=== PATIENT | male | born 1985 | race African-American/Black ===

== ENCOUNTER 2019-07-23 08:09 | Emergency (ER) | payer SELFPAY ==
[2019-07-23] MEDS ORDERED: NORMAL SALINE 1000 ML 1,000 ML IV ONE ×2 (08:28→12:14)
[2019-07-23] MEDS ORDERED: ONDANSETRON HCL INJ/PF 4 MG/2 ML SDV IV ONE (08:28)
[2019-07-23] MEDS ORDERED: MORPHINE SULFATE 10 MG/ML INJ IV ONE ×2 (08:28→09:09)
--- NOTE | 2019-07-23 08:39 | ER Document Report ---
ED General - General Chief Complaint: Abdominal Pain Stated Complaint: ABDOMINAL PAIN Time Seen by Provider: 07/23/19 08:18 Primary Care Provider: RE ONEAL MD [ACTIVE STAFF] - Follow up in 3-5 days NBA MELTON MD [ACTIVE STAFF] - Follow up in 3-5 days SANJAY RUCKER MD [ACTIVE STAFF] - Follow up in 3-5 days Mode of Arrival: Wheelchair Information source: Patient - HPI Similar symptoms previously: No Notes: 42-year-old male with a history of type 1 diabetes presents to the emergency room by private car for complaint of having 5 out of 5 abdominal pain, vomiting for one day while he was driving from [place] to [place]. Reports that pain started approximately 18 hours prior. Patient denies any previous diagnoses such as gastric ulcers, pancreatitis. Patient states that he did take 3 Percocets that was not prescribed to him yesterday from a friend due to having his pain. Patient denies a history of any substance abuse. unable to get a full history and initial exam due to patient's level of pain. Denies any trauma which causes abdominal pain. Patient does not have a primary care provider. Denies fevers, chills, chest pain,palpitations, shortness of breath, dyspnea, diarrhea, hematuria,blurred vision, double vision, loss of vision, speech changes, LH, dizziness, syncope, headaches, wheezing, ST, URI, neck pain, weakness, bowel or bladder dysfunction, saddle anesthesia, numbness or tingling in bilateral upper or lower extremities equally, muscle paralysis, weakness in bilateral upper or lower extremities equally or rash. Denies IV drug use. - Related Data Allergies/Adverse Reactions: No Known Allergies Allergy (Unverified 07/23/19 08:36) Past Medical History - General Information source: Patient - Social History Smoking Status: Unknown if Ever Smoked Family History: Reviewed & Not Pertinent Review of Systems - Review of Systems Constitutional: Diaphoresis EENT: No symptoms reported Cardiovascular: No symptoms reported Respiratory: No symptoms reported Gastrointestinal: See HPI, Abdominal pain, Nausea, Vomiting Genitourinary: No symptoms reported Male Genitourinary: No symptoms reported Musculoskeletal: No symptoms reported Skin: No symptoms reported Hematologic/Lymphatic: No symptoms reported Neurological/Psychological: No symptoms reported Physical Exam - Vital signs Vitals: Temp Pulse Resp BP Pulse Ox 98.0 F 111 H 24 H 200/112 H 100 07/23/19 08:13 07/23/19 08:13 07/23/19 08:13 07/23/19 08:13 07/23/19 08:13 - Notes Notes: PHYSICAL EXAMINATION: GENERAL: ill-appearing, well-nourished and in moderate distress HEAD: Atraumatic, normocephalic. EYES: Pupils equal round and reactive to light, extraocular movements intact, sc chloe anicteric, conjunctiva are normal. ENT: Nares patent, oropharynx clear without exudates. Moist mucous membranes. NECK: Normal range of motion, supple without lymphadenopathy LUNGS: Breath sounds clear to auscultation bilaterally and equal. No wheezes rales or rhonchi. HEART: Regular rate and rhythm without murmurs ABDOMEN: Gastric tenderness on palpation, nondistended abdomen. No guarding, no rebound. No masses appreciated. No CVA tenderness bilaterally. Musculoskeletal: Normal range of motion, no pitting or edema. No cyanosis. NEUROLOGICAL: Cranial nerves grossly intact. Normal speech, normal gait. Normal sensory, motor exams PSYCH: Normal mood, normal affect. SKIN: Warm, Dry, normal turgor, no rashes or lesions noted. Course - Re-evaluation Re-evalutation: 07/23/19 14:06 On initial evaluation of patient at bedside, patient appears to be in patient is in severe pain related to having muscle pain and epigastric pain, immediately requested Dr. Fadi Wallace, supervising MD in ER, to come to bedside and he was present immediately to evaluate patient for severe abdominal pain, diaphoresis, vomiting and tachycardia. Patient is awake alert and orientated in 10 out of [address] Wallace during patient's presentation, felt that it would be appropriate to do a CTA pelvis, abdomen, chest considering patient is an extraordinary amount of pain, pointing to his epigastric area for the cause of his pain. Patient denies any history of pancreatitis, bowel obstruction, gastric ulcers. Patient denied any opioid use on initial presentation. Reports that all of his findings came back negative. When asked the patient had taken any medications that were not prescribed to him, patient states that he did take 3 oxycodone's that was not prescribed to him to for his due to his pain. At 1000, 1200, [address] Duffy consulted reviewed all lab work, CTsCBC negative for leukocytosis, CMP negative for hepatic or renal dysfunction, no electrolyte disturbances. EKG negative for acute STEMI. Due to course of his ER stay, 3 cardiac enzymes negative. CTA of chest, abdomen and pelvis all negative. Differential did include perforated diverticulitis, incarcerated hernia, pancreatitis, acute appendicitis, bowel obstruction, acute cholecystitis, gastroparesis, perforated ulcer, peritonitis which were all negative laboratory, diagnostic and clinical findings. Multiple abdominal examinations performed every 2 hours in which patient was resting, vital signs are stable, afebrile, in no distress. Over the course of 3 hours, IV medication of 50 mcg of fentanyl, 1 mg of Dilaudid, 8 mg of morphine patient's pain did reduce dramatically down to a 2 out of 10, pulse was 80bpm, patient was relaxing in bed, states his pain had resolved. Patient was able to articulate his history stated that he has had multiple issues with having acute abdominal pain, has been hospitalized multiple times in [place], has been evaluated by [facility], patient states he has had multiple endoscopies, mail officer, ekg's, seen by his primary care as well as even a psychiatrist due to there being no medical etiology for his epigastric pain and has exacerbations of his "chronic pain". family was not at bedside initially, the brother did come at roughly 6 PM, this is where he did tell the nurse that he has been taking a month's supply of pain medication, which he had recently run out of. This provider did discuss with the patient if he is withdrawing from pain medication, the patient states that he did take oxycodones that were not prescribed to him. Patient states he did have a substance abuse history in the past, denies any current substance abuse with IV drugs. Urine drug screen did show positive for opiates however this was completed after patient was given IV medication due to acute pain tachycardia and diaphoresis, which did resolve with pain medication. patient states that he just wants to return to [place], where all of his medical providers are, brother was at bedside and states he would be driving him back to [place]. This provider did not feel comfortable with discharging the patient with a heart rate 138, but no documented emergency room or provider files from [place]. When patient's pain is under control he is heart rate is under control, is not in any pain and is asymptomatic with a normal hr. It seems once the pain medication wears off, patient starts to withdraw. Patient's blood pressure was elevated 160/115, patient states he does have hypertension, and has not been taking his medications. 10 mg of hydralazine given IV. On reevaluation roughly an hour later, patient's blood pressure reduced to 140/85, heart rate in the 90s. patient given #6 325mg-5mg norco to manage his pain until he goes to [place] which the brother states he is going right after they leave heart rate did reduce down to 100 bpm, abdominal exam prior to discharge was negative, patient adamantly states he is not having any chest pain shortness of breath nausea vomiting or diarrhea, denies any severe headache, abdominal pain, lower back pain, bowel or bladder dysfunction, saddle anesthesia, fever, chills, weakness, dizziness lightheadedness, neck pain, sore throat, dyspnea. Patient selectively remembers when he can remember his history. Discussed with patient if his heart rate does reduce he would be eligible for discharge considering there is no admittable diagnosis due to the fact that all of his work-up was negative, he likely is suffering from opioid addiction, patient refused to have a issue with having opioids, refused any rehab and refused any assistance in recovering from his opioid addiction. Patient stated that he would like to leave with his brother and they would drive overnight back to [place] where all of his doctors are. Brother does not appear to be under the influence, is awake and alert and orientated. Patient is awake alert and orientated, is not under the influence of medications, GCS is 15. Abd ominal exams which have been done every 2 hours all unremarkable, patient's heart rate only increased when his pain increased, no etiology for his abdominal pain. Patient's brother confirmed that patient has had multiple work-ups in [place] by gastroenterology, cardiology, primary care as well as a psychiatrist where they cannot find the etiology for his pain exacerbations. Brother did confirm that this exacerbations exactly the same exacerbations that he had in [place]. Patient's brother did also confirm that he has had multiple endoscopies which all came back negative. Patient states the reason for seeing the psychiatrist was for the concern of hysteria related to this acute pain exacerbation as an etiology. There is no supportive documentation present. Patient adamantly wants to leave, discussed with him that his blood pressure and vitals remained stable then he will be able to leave. Patient will be sent home with a prescription for omeprazole 20 mg daily, hydrochlorothiazide 25 mg daily, and Zofran as needed for nausea vomiting. This provider suspects there may be an opioid dependence that is creating this acute exacerbation of pain as a symptom of withdrawal from opioids. pt understands that he can return at any time for further care and is more than welcome to do so and patient is also declined any rehab for opioid dependence. Patient given 6 tablets of [place] [address] 25 so patient does not go into opioid withdraw so he can drive back to [place] where he says he states he would like to seek treatment for rehab there and not in [place]. Patient was not under the influence at time of discharge. pt verbalizes this understanding. After performing a Medical Screening Examination, I estimate there is LOW risk for ACUTE APPENDICITIS, BOWEL OBSTRUCTION, ACUTE CHOLECYSTITIS, PERFORATED DIVERTICULITIS, INCARCERATED HERNIA, PANCREATITIS, TESTICULAR TORSION or PERFORATED ULCER, thus I consider the discharge disposition reasonable. Also, there is no evidence or peritonitis, sepsis, or toxicity. I have reevaluated this patient multiple times and no significant life threatening changes are noted. The patient and I have discussed the diagnosis and risks, and we agree with discharging home with close follow-up with the understanding that symptoms and presentations can change. We also discussed returning to the Emergency Department immediately if new or worsening symptoms occur. We have discussed the symptoms which are most concerning (e.g., bloody stool, fever, changing or worsening pain, intractable vomiting - standard verbal up date) that necessitate immediate return. - Vital Signs Vital signs: Temp Pulse Resp BP Pulse Ox 98.7 F 110 H 18 162/95 H 100 07/23/19 20:35 07/23/19 20:46 07/23/19 20:30 07/23/19 20:30 07/23/19 20:30 - Laboratory Result Diagrams: 07/23/19 08:29 07/23/19 08:29 Laboratory results interpreted by me: 07/23/19 07/23/19 07/23/19 08:29 08:29 08:33 RBC 4.26 L Hgb 10.9 L Hct 33.2 L MCV 78 L MCH 25.5 L RDW 14.2 H Carbon Dioxide 32 H Glucose 128 H POC Glucose 117 H Lactic Acid Alkaline Phosphatase 338 H Creatine Kinase 619 H Total Protein 8.5 H Urine Protein Urine Ketones Urine Blood Urine Urobilinogen 07/23/19 07/23/19 11:43 12:27 RBC Hgb Hct MCV MCH RDW Carbon Dioxide Glucose POC Glucose Lactic Acid 0.5 L Alkaline Phosphatase Creatine Kinase Total Protein Urine Protein 100 H Urine Ketones TRACE H Urine Blood SMALL H Urine Urobilinogen 2.0 H Discharge - Discharge Clinical Impression: Abdominal pain Qualifiers: Abdominal location: epigastric Qualified Code(s): R10.13 - Epigastric pain Hypertension Qualifiers: Hypertension type: essential hypertension Qualified Code(s): I10 - Essential (primary) hypertension Condition: Stable Disposition: HOME, SELF-CARE Instructions: Abdominal Pain ([facility]), Antinausea Medication ([facility]), Evaluation of Upper Abdominal Pain ([facility]), High Blood Pressure ([facility]), High Blood Pressure, Requiring Treatment ([facility]), Low-Fat Diet ([facility]), Pain Medication Injection ([facility]) Additional Instructions: Had an extensive work-up today with a CT angiogram of your chest abdomen pelvis that came back negative. You have received IV pain medication. You had 3 serial cardiac enzymes that all came back negative, your heart rate has reduced to 90 bpm. Your EKG was normal. We will start you on blood pressure medication today due to blood pressure being elevated. Please follow-up with your primary care provider for follow-up regarding your blood pressure . He is follow-up with [facility] regarding your epigastric abdominal pain. Will start you on Protonix 20 mg once a day. Take Zofran as needed for any nausea. Will start you on hydrochlorothiazide blood pressure medication, please take daily and follow low-salt diet Prescriptions: Hydrochlorothiazide [Hydrodiuril 25 mg Tablet] 25 mg PO QAM #30 tablet Omeprazole 20 mg PO DAILY #30 capsule. Ondansetron [Zofran Odt 4 mg Tablet] 1 - 2 tab PO Q4H PRN #15 tab.rapdis PRN Reason: For Nausea/Vomiting Referrals: NBA MELTON MD [ACTIVE STAFF] - Follow up in 3-5 days RE ONEAL MD [ACTIVE STAFF] - Follow up in 3-5 days SANJAY RUCKER MD [ACTIVE STAFF] - Follow up in 3-5 days
[2019-07-23 08:45] LABS: ABSOLUTE BASOPHILS # (AUTO) 0.1 10^3/uL (0.0-0.2); ABSOLUTE EOSINOPHILS # (AUTO) 0.3 10^3/uL (0.0-0.6); ABSOLUTE LYMPHOCYTES (AUTO) 2.4 10^3/uL (0.5-4.7); ABSOLUTE MONOCYTES (AUTO) 0.8 10^3/uL (0.1-1.4); ABSOLUTE NEUT (AUTO) 6.2 10^3/uL (1.7-8.2); BASOPHILS % (AUTO) 1.2 % (0-2); EOSINOPHILS % (AUTO) 2.9 % (0-6); HEMATOCRIT 33.2 % (37.9-51.0); HEMOGLOBIN 10.9 g/dL (13.5-17.0); LYMPHOCYTES % (AUTO) 24.5 % (13-45); MEAN CORPUSCULAR HEMOGLOBIN 25.5 pg (27.0-33.4); MEAN CORPUSCULAR HGB CONC 32.7 g/dL (32.0-36.0); MEAN CORPUSCULAR VOLUME 78 fl (80-97); MONOCYTES % (AUTO) 7.8 % (3-13); PLATELET COUNT 318 10^3/uL (150-450); RED BLOOD COUNT 4.26 10^6/uL (4.35-5.55); RED CELL DISTRIBUTION WIDTH 14.2 % (11.5-14.0); SEGMENTED NEUTROPHILS % (AUTO) 63.6 % (42-78); TOTAL CELLS COUNTED % (AUTO) 100 %; WHITE BLOOD COUNT 9.7 10^3/uL (4.0-10.5)
[2019-07-23] MEDS ORDERED: FENTANYL CITRATE INJ/PF 100 MCG/2 ML AMPUL IV ONE ×3 (08:54→19:24)
[2019-07-23] MEDS ORDERED: HYDROMORPHONE HCL INJ/PF 2 MG/ML AMPULE IV ONE (08:54)
[2019-07-23 08:58] LABS: INTERNATIONAL RATION (INR) 1.06; PROTHROMBIN TIME 13.8 SEC (11.4-15.4)
[2019-07-23 08:59] LABS: PARTIAL THROMBOPLASTIN TIME 31.1 SEC (23.5-35.8)
[2019-07-23 09:11] LABS: ALBUMIN 4.6 g/dL (3.5-5.0); ALKALINE PHOSPHATASE 338 U/L (38-126); ANION GAP 9 (5-19); ASPARTATE AMINO TRANSFERASE 35 U/L (17-59); BILIRUBIN,DIRECT 0.1 mg/dL (0.0-0.4); BILIRUBIN,TOTAL 0.8 mg/dL (0.2-1.3); BLOOD UREA NITROGEN 15 mg/dL (7-20); CALCIUM 10.1 mg/dL (8.4-10.2); CARBON DIOXIDE 32 mmol/L (22-30); CHLORIDE 102 mmol/L (98-107); CREATINE KINASE 619 U/L (55-170); GLUCOSE 128 mg/dL (75-110); POTASSIUM 4.2 mmol/L (3.6-5.0); TOTAL PROTEIN 8.5 g/dL (6.3-8.2)
[2019-07-23 09:20] LABS: CREATINE KINASE MB 3.01 ng/mL (<4.55)
[2019-07-23 09:22] LABS: TROPONIN I < 0.012 ng/mL
--- NOTE | 2019-07-23 09:47 | RADIOLOGY REPORT (SQ) ---
EXAM DESCRIPTION: CHEST SINGLE VIEW COMPLETED DATE/TIME: 07/23/2019 9:18 am REASON FOR STUDY: epigastric pain COMPARISON: None. EXAM PARAMETERS: NUMBER OF VIEWS: One view. TECHNIQUE: Single frontal radiographic view of the chest acquired. RADIATION DOSE: NA LIMITATIONS: None. FINDINGS: LUNGS AND PLEURA: No opacities, masses or pneumothorax. No pleural effusion. MEDIASTINUM AND HILAR STRUCTURES: No masses. Contour normal. HEART AND VASCULAR STRUCTURES: Heart normal in size. Normal vasculature. BONES: No acute findings. HARDWARE: None in the chest. OTHER: No other significant finding. IMPRESSION: NO ACUTE RADIOGRAPHIC FINDING IN THE CHEST. TECHNICAL DOCUMENTATION: JOB ID: [id number] [employer]- All Rights Reserved Reading location - IP/workstation name: [email or web address]
[2019-07-23 10:03] LABS: C-REACTIVE PROTEIN < 5.0 mg/L (<10.0)
--- NOTE | 2019-07-23 10:57 | RADIOLOGY REPORT (SQ) ---
EXAM DESCRIPTION: CTA ABDOMEN/PELVIS W WO; CTA CHEST COMPLETED DATE/TIME: 07/23/2019 10:08 am REASON FOR STUDY: tachy, abd pain, severe pain COMPARISON: AP chest 07/23/2019 CT abdomen same date CONTRAST TYPE AND DOSE: contrast/concentration: Isovue 350.00 mg/ml; Total Contrast Delivered: 75.0 ml; Total Saline Delivered: 70.0 ml RENAL FUNCTION: Creatinine 1.2 TECHNIQUE: CT angio of the chest performed using helical scanning technique with dynamic intravenous contrast injection. Images reviewed with lung, soft tissue and bone windows. Reconstructed coronal and sagittal MPR images reviewed. All images stored on PACS. Additional 3 dimensional post-processi ng performed to develop Maximal Intensity Projection images (MIP) CT angio of the abdomen and pelvis performed with intravenous and without oral contrastusing helical scanning technique with dynamic intravenous contrast injection. Images reviewed with lung, soft tiss ue and bone windows. Reconstructed coronal and sagittal MPR images reviewed. Delayed images for kenzie luation of the urinary system also acquired and evaluated. All images stored on PACS. Additional 3 d imensional post-processing performed to develop Maximal Intensity Projection images (MIP) All CT scanners at this facility use dose modulation, iterative reconstruction, and/or weight based d osing when appropriate to reduce radiation dose to as low as reasonably achievable (ALARA). [facility]: Dose Right [facility]: CareDose [facility]: Dose Right [facility]: Teradose 4D [facility]: [employer] RADIATION DOSE: CT Rad equipment meets quality standard of care and radiation dose reduction techniq ues were employed. CTDIvol: 8.8 - 11.7 mGy. DLP: 1237 mGy-cm. . LIMITATIONS: None. FINDINGS: CHEST: LUNGS AND PLEURA: No opacities, nodules, masses. No pneumothorax. No effusions. HILAR AND MEDIASTINAL STRUCTURES: No identified masses or abnormal nodes. Retrocardiac hiatal hernia . HEART AND VASCULAR STRUCTURES: No aneurysm or dissection. No central pulmonary emboli. No pericardi al effusion. HARDWARE: None. THYROID AND OTHER SOFT TISSUES: No masses. No adenopathy. BONES: No significant finding. OTHER: No other significant finding. ABDOMEN AND PELVIS: LIVER: Normal size. No masses. No dilated ducts. SPLEEN: Normal size. No focal lesions. PANCREAS: No masses. No significant calcifications. No adjacent inflammation or peripancreatic fluid collections. Pancreatic duct not dilated. GALLBLADDER: Surgically absent. ADRENAL GLANDS: No significant masses or asymmetry. RIGHT KIDNEY AND URETER: No solid masses. No significant calcification. No hydronephrosis or hydroure ter. LEFT KIDNEY AND URETER: No solid masses. No significant calcification. No hydronephrosis or hydrouret er. AORTA AND VESSELS: No aneurysm. No dissection. Renal arteries, SMA, celiac without stenosis. RETROPERITONEUM: No retroperitoneal adenopathy, hemorrhage or masses. BOWEL AND PERITONEAL CAVITY: No masses or inflammatory changes. No free fluid or peritoneal masses. APPENDIX: Normal. ABDOMINAL WALL: No masses. No hernias. PELVIS: No mass or free fluid. Normal bladder. BONES: Bilateral L5 spondylolysis. OTHER: No other significant finding. IMPRESSION: Normal CT angio chest. No thoracic aortic dissection or acute pulmonary emboli. Post cholecystectomy. Hiatal hernia. No acute findings in the abdomen/pelvis TECHNICAL DOCUMENTATION: JOB ID: [id number] Quality ID # [id number]: Final reports with documentation of one or more dose reduction techniques (e.g., Au tomated exposure control, adjustment of the mA and/or kV according to patient size, use of iterative reconstruction technique) 2010 [employer]- All Rights Reserved Reading location - IP/workstation name: [email or web address]
[2019-07-23 12:03] LABS: APPEARANCE,URINE CLEAR; BILIRUBIN,URINE NEGATIVE (NEGATIVE); COLOR,URINE YELLOW; GLUCOSE, URINE NEGATIVE (NEGATIVE); KETONES,URINE TRACE mg/dL (NEGATIVE); LEUKOCYTE ESTERASE,URINE NEGATIVE (NEGATIVE); NITRITE,URINE NEGATIVE (NEGATIVE); PROTEIN,URINE 100 mg/dL (NEGATIVE); URINE SPECIFIC GRAVITY 1.023
[2019-07-23 12:40] LABS: URINE AMPHETAMINES SCREEN NEGATIVE; URINE BARBITURATES SCREEN NEGATIVE; URINE BENZODIAZEPINES SCREEN NEGATIVE; URINE COCAINE SCREEN NEGATIVE; URINE MARIJUANA (THC) SCREEN NEGATIVE; URINE METHADONE SCREEN NEGATIVE; URINE PHENCYCLIDINE SCREEN NEGATIVE
[2019-07-23] MEDS ORDERED: NORMAL SALINE 1000 ML 1,000 ML IV PRN (13:53)
[2019-07-23] MEDS ORDERED: HYDROCODONE/ACETAMINOPHEN 10-325 MG TABLET PO ONE (16:43)
[2019-07-23] MEDS ORDERED: LOSARTAN POTASSIUM 25 MG TABLET PO ONE (17:55)
[2019-07-23] MEDS ORDERED: HYDRALAZINE HCL INJ/PF 20 MG/1 ML SDV IV ONE (17:56)
[2019-07-23] MEDS ORDERED: HYDROCODONE/ACETAMINOPHEN 5-325 MG (6 TAB/ER DISP) PO PRN (19:02)
[2019-07-23 20:31] VITALS: BP 162/95
--- NOTE | 2019-07-23 21:50 | EKG REPORT ---
SEVERITY:- BORDERLINE ECG - SINUS TACHYCARDIA BORDERLINE PROLONGED QT INTERVAL : Confirmed by: Claudia Mg MD 23-Jul-2019 21:49:44
== END 2019-07-23 20:48 | disposition home or self-care (01) ==
LOC: ER 08:09
DX: R10.13 Epigastric pain (principal); R11.2 Nausea with vomiting, unspecified; R61 Generalized hyperhidrosis; I10 Essential (primary) hypertension; E10.9 Type 1 diabetes mellitus without complications
CPT/HCPCS: 93005; 96376; 99284; 96361; 96374; 96375; 36415; 82553; 82962; 82550; 83605; 83690; 85025; 85610; 85730; 86140; 80053; 81001; 84484; 80307; 71045; 71275; 74174; 93010; J3010; J0360; J2270; J1170; J2405; J7030